=== PATIENT | female | born 1960 | race American Indian/Alaskan Native ===

== ENCOUNTER 2019-08-09 16:08 | Outpatient (CLI) | payer BC ==
--- NOTE | 2019-08-10 08:38 | Mammography Report ---
RIGHT DIGITAL SCREENING MAMMOGRAM WITH CAD INDICATION: Routine screening mammography, status post left mastectomy in 2006. TECHNIQUE: Digital right 2D mammography was obtained in the craniocaudal and mediolateral oblique pr ojections. This examination was interpreted with the benefit of Computer-Aided Detection analysis. COMPARISON: None available. FINDINGS: Breast Density: The right breast is heterogeneously dense, which may obscure small masses. No suspicious mass, microcalcifications, or architectural distortion. A few scattered benign-appearin g lucent centered calcifications are noted. IMPRESSION: No evidence of breast malignancy. Recommend routine screening mammogram in one year. BI-RADS Category 2: Benign. No mammographic evidence of malignancy. Recommend routine screening ma mmography in one year. A "normal" or negative report should not discourage follow up or biopsy of a clinically significant f inding. A written summary of these findings will be mailed to the patient. The patient will be entered into a mammography reporting system which will generate a reminder letter for the patient's next appointmen t at the appropriate interval. The [employer] recommends yearly mammograms starting at age 40 and continuing as l bernard as a woman is in good health. Breast MRI is recommended for women with an approximate 20-25% or greater lifetime risk of breast cancer, including women with a strong family history of breast or ova mert cancer or who have been treated for Hodgkin's disease. Signer Name: Juanito Shearer MD Signed: 08/10/2019 8:34 AM Workstation Name: [id number]
== END 2019-08-09 16:09 | disposition home or self-care (01) ==
LOC: SPVWC 16:08
PROVIDERS: ATTEND Surgery
DX: Z12.31 Encounter for screening mammogram for malignant neoplasm of breast (principal)
CPT/HCPCS: 77067

== ENCOUNTER 2019-08-26 09:35 | Outpatient (CLI) | payer BC ==
--- NOTE | 2019-08-26 13:37 | Cat Scan Report ---
CT CHEST, ABDOMEN AND PELVIS WITH CONTRAST HISTORY: Left breast cancer status post mastectomy in 2006. COMPARISON: None. TECHNIQUE: CT images of the chest, abdomen and pelvis were obtained following administration of intra venous contrast. Note: All CT scans at this location are performed using CT dose reduction employed f or ALARA by means of automated exposure control. CONTRAST: 100 ml of Omnipaque 300. Consent was obtained prior to the administration of contrast. FINDINGS: CT CHEST: Heart and Pericardium: No significant abnormality. Vasculature: No significant abnormality. Lymphatics: A left subpectoral lymph node lies lateral and slightly superior to the left subclavian a rtery at the level of the first rib and measures 1.6 x 1.2 cm. Status post left axillary node dissect ion with surgical clips in the left axilla. Lungs: No significant abnormality. Trachea and Bronchi: No significant abnormality. Osseous Structures: Normal Soft tissues: A left breast implant is in place. CT ABDOMEN: Liver: No significant abnormality. Biliary: No significant abnormality. Spleen: No significant abnormality. Unenlarged. Pancreas: No significant abnormality. Adrenals: No significant abnormality. Kidneys: No significant abnormality. Lymphatics: No lymphadenopathy. Vasculature: No significant abnormality. Bowel/Peritoneum: Nonobstructive bowel pattern. Diverticulosis without mesocolonic fat stranding. No free air. No free fluid. Normal appendix. CT PELVIS: : Normal uterus and ovaries. Osseous Structures: No suspicious bone lesions. Additional Findings: None IMPRESSION: 1. A probably benign 1.6 cm left subpectoral lymph node. Since it is not accessible needle biopsy, re commend follow-up with either a CT PET or CT Chest. 2. No evidence of pulmonary, hepatic or skeletal metastasis. Signer Name: Vic Aburto MD Signed: 08/26/2019 1:33 PM Workstation Name: [id number]
--- NOTE | 2019-08-26 14:54 | Nuclear Medicine Report ---
WHOLE BODY BONE SCAN HISTORY: History of left breast cancer. COMPARISON: No prior exam or report is available for direct comparison. TECHNIQUE: Following administration of Tc-99m MDP, static whole body anterior and posterior delayed p hase images were acquired. RADIOPHARMACEUTICAL: 27.5 mCi Tc-99m MDP. FINDINGS: No significantly abnormal uptake. Normal physiologic background activity. Additional Findings: None. IMPRESSION: 1. Negative study Signer Name: Vic Aburto MD Signed: 08/26/2019 2:49 PM Workstation Name: [id number]
== END 2019-08-26 09:36 | disposition home or self-care (01) ==
LOC: NM 09:35
PROVIDERS: ATTEND Internal Medicine Hematology & Oncology
DX: K57.30 Diverticulosis of large intestine without perforation or abscess without bleeding (principal); Z85.3 Personal history of malignant neoplasm of breast; Z90.12 Acquired absence of left breast and nipple
CPT/HCPCS: 71260; 74177; 78306; A9503; Q9967

== ENCOUNTER 2019-11-02 15:04 | Outpatient (CLI) | payer BC ==
[2019-11-02 16:10] LABS: Blood Urea Nitrogen 15 mg/dL (7-17)
--- NOTE | 2019-11-02 17:13 | Cat Scan Report ---
CT CHEST WITH CONTRAST INDICATION / CLINICAL INFORMATION: Reevaluate abnormal lymph node, history of breast cancer. TECHNIQUE: Axial CT images were obtained through the chest after 100 mL Omnipaque [address]. [address] scans at this location are performed using CT dose reduction for ALARA by means of automated exposure contr ol. COMPARISON: Chest CT 08/26/2019 FINDINGS: HEART: Stable heart size. No pericardial effusion. THORACIC AORTA: No significant abnormality. MEDIASTINUM and JASPREET: No significant abnormality. LUNGS: No acute air space or interstitial disease. PLEURA: No pleural effusion. No pneumothorax. ADDITIONAL FINDINGS: Previous left mastectomy. The previously noted possible left subpectoral node is stable,, best seen on series 601 image 64 of the present study. UPPER ABDOMEN: No significant abnormality. SKELETAL SYSTEM: No significant abnormality. IMPRESSION: No acute abnormality or significant change from 08/26/2019. Stable left subpectoral node favored to be benign. No other evidence of intrathoracic metastasis. Signer Name: Rudolph Eduardo MD Signed: 11/02/2019 5:08 PM Workstation Name: [id number]
== END 2019-11-02 15:05 | disposition home or self-care (01) ==
LOC: CT 15:04
PROVIDERS: ATTEND Internal Medicine Hematology & Oncology
DX: Z85.3 Personal history of malignant neoplasm of breast (principal); Z90.12 Acquired absence of left breast and nipple
CPT/HCPCS: 36415; 71260; 82565; 84520; Q9967

== ENCOUNTER 2019-12-21 15:34 | Emergency (ER) | payer OTHER, BC ==
[2019-12-21 16:23] VITALS: BP 134/83
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
[2019-12-21] MEDS ORDERED: HYDROcodone/ACETAMINOPHEN 5-325 MG TAB PO STA (18:44)
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
== END 2019-12-21 19:59 | disposition home or self-care (01) ==
LOC: ED 15:34
DX: M54.6 Pain in thoracic spine (principal); M19.91 Primary osteoarthritis, unspecified site; G43.909 Migraine, unspecified, not intractable, without status migrainosus; Z86.73 Personal history of transient ischemic attack (TIA), and cerebral infarction without residual deficits; Z85.9 Personal history of malignant neoplasm, unspecified; Z98.890 Other specified postprocedural states; Z79.899 Other long term (current) drug therapy; Z88.8 Allergy status to other drugs, medicaments and biological substances; V49.59XA Passenger injured in collision with other motor vehicles in traffic accident, initial encounter; Y93.89 Activity, other specified; Y92.410 Unspecified street and highway as the place of occurrence of the external cause; Y99.8 Other external cause status
CPT/HCPCS: 72131

== ENCOUNTER 2020-08-10 08:57 | Outpatient (CLI) | payer BC ==
--- NOTE | 2020-08-10 09:58 | Mammography Report ---
DIGITAL SCREENING MAMMOGRAM WITH CAD, 08/10/2020 CLINICAL INFORMATION / INDICATION: Routine screening mammography. TECHNIQUE: Digital right breast 2D mammography was obtained in the craniocaudal and mediolateral obl ique projections. This examination was interpreted with the benefit of Computer-Aided Detection cristofer sis. COMPARISON: 08/09/2019 FINDINGS: Breast Density: The breasts are heterogeneously dense, which may obscure small masses. No dominant mass, suspicious calcifications, or architectural distortion in the right breast. IMPRESSION: No mammographic evidence of malignancy. Follow up recommendation: Routine yearly BI-RADS Category 1: Negative. A "normal" or negative report should not discourage follow up or biopsy of a clinically significant f inding. A written summary of these findings will be mailed to the patient. The patient will be entered into a mammography reporting system which will generate a reminder letter for the patient's next appointmen t at the appropriate interval. The [employer] recommends yearly mammograms starting at age 40 and continuing as l bernard as a woman is in good health. Breast MRI is recommended for women with an approximate 20-25% or greater lifetime risk of breast cancer, including women with a strong family history of breast or ova mert cancer or who have been treated for Hodgkin's disease. Signer Name: Kirby Tee MD Signed: 08/10/2020 9:54 AM Workstation Name: [id number]
== END 2020-08-10 08:58 | disposition home or self-care (01) ==
LOC: SPVWC 08:57
PROVIDERS: ATTEND Surgery
DX: Z12.31 Encounter for screening mammogram for malignant neoplasm of breast (principal)

== ENCOUNTER 2020-10-04 10:45 | Outpatient (CLI) | payer BC ==
[2020-10-04 12:12] LABS: Blood Urea Nitrogen 14 mg/dL (7-17)
--- NOTE | 2020-10-04 13:42 | Cat Scan Report ---
CT CHEST WITH CONTRAST INDICATION / CLINICAL INFORMATION: History of left breast cancer. TECHNIQUE: Axial CT images were obtained through the chest after 60 cc IV contrast. Sagittal and coronal reforma tted images. All CT scans at this location are performed using CT dose reduction for ALARA by means o f automated exposure control. COMPARISON: 03/03/2020 FINDINGS: HEART: Stable borderline heart size. No pericardial abnormality. THORACIC AORTA: No significant abnormality. MEDIASTINUM and JASPREET: No significant abnormality. LUNGS: No acute air space or interstitial disease. No suspicious pulmonary nodule or mass has develo ped. PLEURA: No significant pleural effusion. No pneumothorax. SKELETAL SYSTEM: Borderline osteopenia. No suspicious bony lesion. UPPER ABDOMEN: No significant abnormality. ADDITIONAL FINDINGS: Stable appearance of the left breast prosthesis and left axillary lymph node dis section. No axillary or subpectoral adenopathy has developed. Previously noted left subpectoral lymph node remains unchanged. IMPRESSION: Stable findings since 03/03/2020 exam with no evidence for recurrence or metastasis. Signer Name: Alex Cheek Jr, MD Signed: 10/04/2020 1:38 PM Workstation Name: [id number]
== END 2020-10-04 10:46 | disposition home or self-care (01) ==
LOC: CT 10:45
PROVIDERS: ATTEND Internal Medicine Hematology & Oncology
DX: C50.912 Malignant neoplasm of unspecified site of left female breast (principal); M85.88 Other specified disorders of bone density and structure, other site; Z98.82 Breast implant status
CPT/HCPCS: 36415; 71260; 82565; 84520; Q9967